=== PATIENT | male | born 1970 | race Caucasian/White ===

== ENCOUNTER 2020-04-07 14:01 | Emergency (ER) | payer OTHER, SELFPAY ==
[2020-04-07 14:03] VITALS: BP 165/84; PULSE 98; RESP 18; TEMP 36.2; O2SAT 96
[2020-04-07] MEDS: FLUORESCEIN SOD 1 MG/STRIP (14:47)
--- NOTE | 2020-04-07 14:47 | PC.NURSE ---
provider in room now for eye exam
--- NOTE | 2020-04-07 15:02 | PC.NURSE ---
provider did remove small piece of wire from right eye. now washing the patient's eye out at bedside.
[2020-04-07] MEDS: DACRIOSE EYE IRRIGATION 118 ML BOTTLE (15:14)
--- NOTE | 2020-04-07 15:17 | ED.EYEPROB ---
HPI - Eye Problem General Chief complaint: Eye Problems Stated complaint: eye injury Time Seen by Provider: 04/07/20 14:28 Source: patient Mode of arrival: ambulatory Limitations: no limitations History of Present Illness HPI Narrative: This is a 50 year old male that presents to the ER for injury to the right eye sustained just prior to arrival. Reports a wire swung up from the bottom of a fence while at work. Reports it hit him in the right eye. Reports pain and foreign body sensation. Also reports tearing. Reports blurry vision in this eye. He does not wear contacts. Denies double vision or vomiting. Related Data Home Medications Medication Instructions Recorded Confirmed No Home Medications 04/07/20 04/07/20 Allergies Allergy/AdvReac Type Severity Reaction Status Date / Time No Known Allergies Allergy Unknown Verified 04/07/20 14:29 Review of Systems Review of Systems: Narrative: CONSTITUTIONAL: Denies fever EYES: Reports visual changes, redness, and tearing All systems reviewed & are unremarkable except as noted in HPI and below PMFSH Past Medical History Medical History (Updated 04/07/20 @ 15:26 by Dasha Clarke PA-C) History of depression Surgical History Surgical History (Updated 04/07/20 @ 15:23 by Dasha Clarke PA-C) History of tonsillectomy Social History Social History Gender identity (if verbalized by the patient): Male Exam Narrative: Exam Narrative: GENERAL: Well-appearing, well-nourished, and in no acute distress. HEAD: Normocephalic, atraumatic. EYES: PERRLA and EOMI. R 20/25, L 20/20. Eyelid everted and small metal foreign bodies noted on the upper, inner eyelid. Fluorescein stain exam shows a moderate sized corneal abrasion. Eye pressure 16 bilaterally EXTREMITIES: Normal range of motion. No edema. SKIN: Warm, dry, no rash. NEURO: No focal deficits. Alert and oriented x3. PSYCH: Normal mood and affect Course Vital Signs Vital signs: Vital Signs Temperature 97.2 F L 04/07/20 14:03 Pulse Rate 98 04/07/20 14:03 Respiratory Rate 18 04/07/20 14:03 Blood Pressure 165/84 H 04/07/20 14:03 Pulse Oximetry 96 04/07/20 14:03 Temperature 97.2 F L 04/07/20 14:03 Pulse Rate 98 04/07/20 14:03 Respiratory Rate 18 04/07/20 14:03 Blood Pressure 165/84 H 04/07/20 14:03 Pulse Oximetry 96 04/07/20 14:03 Procedures FB Removal Eye Foreign Body #1: Foreign Body Removal Date: 04/07/20 Foreign Body Removal Time: 15:24 Location: eye (R) Topical anesthetic used: tetracaine Foreign body: metal Evidence of corneal penetration: Yes (Moderate size corneal abrasion noted) Technique: eye wash bottle and needle Procedure performed under: direct visualization with magnification Post-procedure medication: ophthalmic antibiotic Patient tolerated procedure: well and no complications MDM - Eye Problem MDM Narrative Medical decision making narrative: Patient presents the emergency department for eye injury today. Patient denies any double vision or vomiting. Visual acuity is intact. Small metallic foreign bodies were noted and removed. Patient started on antibiotic eye ointment for corneal abrasion noted as well. Patient was instructed to follow-up with his eye doctor. He was given warnings to return to the ER Critical Care Time Critical Care Time Critical Care Time: No Discharge Plan Discharge Clinical Impression: Corneal abrasion Qualifiers: Encounter type: initial encounter Laterality: right Qualified Code(s): S05.01XA - Injury of conjunctiva and corneal abrasion without foreign body, right eye, initial encounter Patient Disposition: Home, Self-Care Condition: Stable Instructions: Antibiotic Form, Corneal Abrasion (ED) Additional Instructions: Return to the emergency department if you experience fever, vision changes, vomiting, or any other symptoms that are concerning to him
--- NOTE | 2020-04-07 15:35 | PC.NURSE ---
patient has eye gtts ordered and acuity test. 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 not able to do [facility] drug testing here. discussed with charge nurse. patient will hit his call light when he is done on the phone.
[2020-04-07] MEDS: ERYTHROMYCIN OPHTH OINTMENT 1 GM TUBE 1 APPLIC RIGHT EYE (15:44)
[2020-04-07 15:57] VITALS: BP 116/78; PULSE 78; RESP 18; O2SAT 98
[2020-04-07 16:20] LABS: Amphetamine Screen Urine Negative (Negative); Barbiturate Screen Urine Negative (Negative); Benzodiazepines Screen Urine Negative (Negative); Cannabinoid Screen Urine Negative (Negative); Cocaine Screen Urine Negative (Negative); Methadone Screen Urine Negative (Negative); Opiate Screen Urine Negative (Negative); Phencyclidine Screen Urine Negative (Negative)
== END 2020-04-07 15:58 | disposition home or self-care (01) ==
PROVIDERS: Physician Assistant; Emergency Provider Emergency Medicine; PCP Family Medicine
DX: T15.01XA Foreign body in cornea, right eye, initial encounter (principal); W20.8XXA Other cause of strike by thrown, projected or falling object, initial encounter
CPT/HCPCS: 65220; 80307; 99283; A9270

== ENCOUNTER 2021-07-09 16:14 | Emergency (ER) | payer OTHER, SELFPAY ==
[2021-07-09] VITALS (20 sets, daily range): BP systolic 115–132; BP diastolic 70–86; PULSE 69–94; RESP 14–18; TEMP 37; O2SAT 97–100
--- NOTE | 2021-07-09 16:58 | ED.GENADULT ---
HPI - General Adult General Chief complaint: Environmental Exposure Stated complaint: over heated Time Seen by Provider: 07/09/21 16:58 Source: patient Mode of arrival: ambulatory Limitations: no limitations History of Present Illness HPI narrative: Patient is a 51-year-old male who presents the ED with report of tingling in body. 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 He started working around 7 AM and only took a break for lunch. He states he was drinking plenty of water throughout the day. Around 2:30 PM, he began feeling off. He reported having weakness, fatigue, dizziness, and tingling from the top of his head to the bottom of his toes, like his extremities are asleep. Patient also reported having 3 episodes of vomiting. He denied feeling nauseous or having any abdominal pain at that time. He does state he vomited mostly water. Denies any nausea currently. Patient states he does not feel much different since resting and being in a cool environment. He also reports having a tremor in his right hand which is new. He denies any recent cough or cold symptoms, fever, chills, chest pain, shortness of breath, back pain, urinary symptoms, focal weakness, numbness. Related Data Home Medications Medication Instructions Recorded Confirmed sertraline 25 mg PO DAILY 07/09/21 07/09/21 Allergies Allergy/AdvReac Type Severity Reaction Status Date / Time No Known Allergies Allergy Unknown Verified 07/09/21 16:18 Review of Systems Review of Systems: CONSTITUTIONAL: Reports fatigue. Denies fever, chills. ENT: Denies rhinorrhea, congestion, sore throat. CARDIOVASCULAR: Denies chest pain. RESPIRATORY: Denies cough or dyspnea. GASTROINTESTINAL: Reports vomiting. Denies abdominal pain, nausea, or diarrhea. GENITOURINARY: Denies dysuria or hematuria. MUSCULOSKELETAL: Denies back pain. NEUROLOGIC: Reports dizziness, tingling, RUE tremor, generalized weakness. Denies headache, numbness, or focal weakness. All systems reviewed & are unremarkable except as noted in HPI and below PMFSH Past Medical History Medical History History of depression Surgical History Surgical History History of tonsillectomy Social History Social History (Updated 07/09/21 @ 18:20 by Amber Park PA-C) Smoking status: Never smoker Gender identity (if verbalized by the patient): Male Exam Narrative: GENERAL: Well appearing, well-nourished, non-toxic, in no acute distress. HEAD: Normocephalic, atraumatic. EYES: PERRL/EOMI, conjunctivae clear bilaterally. No nystagmus. NECK: Supple. No adenopathy, no masses. RESPIRATORY: Airway patent, respirations nonlabored. Clear to auscultation bilaterally, no rales, rhonchi, wheezing. CARDIOVASCULAR: Regular rate and rhythm without murmurs, rubs, or gallops. Peripheral pulses 2+ and equal bilaterally. ABDOMINAL: Soft, nontender, nondistended, no hepatosplenomegaly. Normoactive BS. MUSCULOSKELETAL: Moves all extremities. Strength/ROM intact without gross deformities or TTP. No edema. SKIN: Warm, dry, sunburn to bilateral facial cheeks. No rashes. NEURO: A&O X3. Speech clear. Follows commands. CN II-XII intact. Sensation grossly intact. Steady gait. Tremor of R hand, resolves with intention. Strength 5/5 in upper and lower extremities bilaterally. [id number] and [id number] testing intact bilaterally. No pronator drift. PSYCHIATRIC: Appropriate mood and affect. Normal interaction. Course Vital Signs Vital signs: Vital Signs Temperature 98.6 F 07/09/21 16:16 Pulse Rate 94 07/09/21 16:16 Respiratory Rate 16 07/09/21 16:16 Blood Pressure 132/86 07/09/21 16:16 Pulse Oximetry 100 07/09/21 16:16 Temperature 98.6 F 07/09/21 16:16 Pulse Rate 69 07/09/21 20:20 Respiratory Rate 14 07/09/21 20:20 Blood Pressure 1
[2021-07-09 17:06] LABS: Basophils Absolute Auto 0.1 K/mm3 (0.0-0.1); Basophils Percent Auto 0.7 % (0.2-1.2); Eosinophils Absolute Auto 0.1 K/mm3 (0-0.3); Eosinophils Percent Auto 0.8 % (0-4.4); Hematocrit 45.4 % (42.0-52.0); Immature Granulocyte Absolute 0.05 K/mm3 (0.00-0.031); Immature Granulocyte Percent A 0.5 % (0-0.5); Lymphocytes Absolute Auto 2.29 K/mm3 (0.9-3.2); Mean Corpuscular HGB Conc 35.2 g/dl (32-36); Mean Corpuscular Hemoglobin 30.4 pg (26-34); Mean Corpuscular Volume 86.1 fl (80-100); Mean Platelet Volume 9.6 fl (7.4-10.4); Monocytes Percent Auto 9.8 % (2.6-8.5); Neutrophils Absolute Auto 6.5 K/mm3 (1.3-6.7); Neutrophils Percent Auto 65.2 % (45.5-73.1); Platelet Count Result 219 k/mm3 (150-375); Red Blood Count 5.27 M/mm3 (4.6-6.20); Red Cell Distribution Width 12.8 % (11.5-14.5)
[2021-07-09] MEDS: SODIUM CHLORIDE 0.9% IV 1,000 ML 999 ML IV CONT ×3 (17:12→19:00)
[2021-07-09 17:14] LABS: Alanine Aminotransferase 11 U/L (6-50); Alkaline Phosphatase 88 U/L (38-126); Anion Gap 8 mmol/L (8-16); Aspartate Amino Transferase 20 U/L (17-59); Bilirubin,Total 0.7 mg/dL (0.2-1.3); Blood Urea Nitrogen 9 mg/dL (9-20); Calcium 9.1 mg/dL (8.4-10.2); Carbon Dioxide 24 mmol/L (22-30); Chloride 104 mmol/L (98-107); Estimated CRCL calculation 72 ml/min; Estimated Glomerular Filt Rate > 60; Glucose 116 mg/dL (65-110); Lipase 101 U/L (23-300); Potassium 3.4 mmol/L (3.4-5.0); Sodium 136 mmol/L (137-145)
[2021-07-09 17:19] LABS: Appearance Urine Clear (Clear); Bilirubin Urine Negative (Negative); Blood Urine Negative (Negative); Color Urine Yellow (Yellow); Glucose Urine UA Negative (Negative); Ketones Urine 2+ mg/dL (Negative); Leukocyte Esterase Ur Negative LEU/UL (Negative); Nitrate Urine Negative (Negative); Protein Urine Negative (Negative)
[2021-07-09 17:28] LABS: Creatine Kinase 39 U/L (55-170)
[2021-07-09 17:29] LABS: RBC Urine 0-2 /hpf (0-2); WBC Urine 0-3 /hpf
[2021-07-09 17:30] LABS: Add Urine Microscopic? YES
--- NOTE | 2021-07-09 17:58 | ECG_ITS ---
Measurements Intervals [place] Rate: 66 P: 59 NE: 163 QRS: 22 QRSD: 106 T: 4 QT: 393 QTc: 413 Interpretive Statements SINUS RHYTHM BORDERLINE ST-T WAVE ABNORMALITY- INFERIOR LEADS BORDERLINE ECG Electronically Signed On 07-09-2021 20:29:01 CDT by Buck De Jesus D.O.
[2021-07-09 18:30] LABS: Magnesium 1.9 mg/dL (1.6-2.3)
== END 2021-07-09 20:20 | disposition home or self-care (01) ==
PROVIDERS: Emergency Medicine; Physician Assistant; Emergency Provider Emergency Medicine; PCP Family Medicine
DX: T67.5XXA Heat exhaustion, unspecified, initial encounter (principal)
CPT/HCPCS: 36415; 80053; 81001; 82550; 83690; 83735; 85025; 93005; 96360; 96361; 99283; J7030